=== PATIENT | female | born 1985 | race Caucasian/White ===

== ENCOUNTER 2024-08-18 20:03 | Emergency (ER) | payer BC, SELFPAY ==
[2024-08-18 20:09] VITALS: BP 120/81; PULSE 78; RESP 16; TEMP 36.6; O2SAT 98
--- NOTE | 2024-08-18 20:59 | XRR_ITS ---
PROCEDURE INFORMATION: Exam: XR Left Hand Exam date and time: 08/18/2024 9:04 PM Age: 39 years old Clinical indication: Injury or trauma; Fall; Blunt trauma (contusions or hematomas); Hand; Left; Additional info: Pain to 3rd/5th digits after fall TECHNIQUE: Imaging protocol: Radiologic exam of the left hand. Views: 3 or more views. COMPARISON: No relevant prior studies available. FINDINGS: Bones/joints: Mildly displaced fracture at the base of the 5th metacarpal. No dislocation. Soft tissues: Mild soft tissue swelling along the medial aspect of the hand. XR/XR hand LT min 3V* [id number] IMPRESSION: Mildly displaced fracture at the base of the 5th metacarpal.
--- NOTE | 2024-08-18 20:59 | XRR_ITS ---
PROCEDURE INFORMATION: Exam: XR Left Wrist Exam date and time: 08/18/2024 9:06 PM Age: 39 years old Clinical indication: Injury or trauma; Fall; Blunt trauma (contusions or hematomas); Wrist; Left; Additional info: Pain/fall TECHNIQUE: Imaging protocol: Radiologic exam of the left wrist. Views: 3 or more views. COMPARISON: CR (UP EX, ) 08/18/2024 9:04 PM FINDINGS: Bones/joints: Redemonstrated mildly displaced fracture of the base of the 5th metacarpal. No dislocation. No acute fracture within the carpal bones or in the visualized portions of the radius and ulna. Soft tissues: Normal. XR/XR wrist LT min 3V* [id number] IMPRESSION: 1. No acute fractures in the wrist. 2. Fifth metacarpal fracture.
--- NOTE | 2024-08-18 21:08 | W.ED.EXTPRO ---
HPI - Extremity Problem General: Chief complaint: Extremity Injury, Upper Stated complaint: fall stairs left hand numb Time Seen by Provider: 08/18/24 20:20 Source: patient Mode of arrival: ambulatory Limitations: no limitations History of Present Illness: Patient is a 39-year-old female who presents to the emergency department after injuring left hand 3 hours prior to arrival. Patient reportedly was walking up a set of bleachers, holding 2 drinks in her hand when she tripped on a step and landed awkwardly on her left hand. She is noting pain specifically to the dorsum of the 3rd through 5th digits, noting that it is numb and difficult to make a fist. No previous fractures or surgical history. She took ibuprofen prior to coming in. No pain in her wrist, no pain in her elbow. No anatomical snuffbox tenderness. MD Complaint: extremity pain Onset (ago): hour(s) (3) Pain Consistency: constant Location: left and upper extremity (hand) Radiation: distal Exacerbating factors: range of motion and palpation Associated symptoms: Deny chest pain, fever(s) or rash Related Data Allergies Allergy/AdvReac Type Severity Reaction Status Date / Time No Known Allergies Allergy Verified 08/18/24 20:13 Review of Systems General: Reports: 10 or more systems reviewed and unremarkable except in HPI and below Const: Denies: fever(s) or chills Card: Denies: chest pain Resp: Denies: dyspnea or productive cough GI: Denies: abdominal pain, nausea, vomiting or diarrhea : Denies: flank pain Musc: Reports: extremity pain (Left hand) and limited range of motion; Denies: neck pain, back pain, extremity swelling, joint pain, joint swelling, joint redness, joint warmth or muscle weakness Skin/Breast: Denies: rash Neuro: Denies: headache(s), numbness in extremities or weakness in extremities Physical Exam Const: COMMON NORMALS: no acute distress, patient oriented x3, no limitations, healthy appearing, alert and well nourished HENMT: COMMON NORMALS: normocephalic and atraumatic HEAD & SCALP: normocephalic and atraumatic Neck/C-Spine: COMMON NORMALS: full ROM, supple and no meningeal signs Resp: COMMON NORMALS: normal respiratory effort, No use of accessory muscles and clear to auscultation bilaterally AUSCULTATION: clear to auscultation bilaterally Cardio: COMMON NORMALS: regular rate and regular rhythm RATE: regular rate RHYTHM: regular rhythm Extremity: COMMON NORMALS: capillary refill normal, no joint enlargement and no clubbing, cyanosis or edema NARRATIVE EXTREMITY EXAM: Reproducible tenderness to palpation of the dorsum of the ulnar aspect of the left hand. Limited active and passive range of motion secondary to pain of the 3rd through 5th digits. No tenderness to palpation of the DIP or PIP joints. No bruising or obvious swelling. 2 small superficial abrasions noted to the dorsum of the hand. No distal sensory deficit. Good radial pulse. No anatomical snuffbox tenderness. Neuro: COMMON NORMALS: patient oriented x3, moves all extremities, no focal motor deficits and no sensory deficits noted SENSORIUM/ORIENTATION: Yes alert MENINGEAL SIGNS: Yes no meningeal signs Course Vital Signs: Vital signs: Vital Signs Temperature 97.8 F 08/18/24 20:09 Pulse Rate 84 08/18/24 22:07 Respiratory Rate 14 08/18/24 22:07 Blood Pressure 122/77 08/18/24 22:07 Pulse Oximetry 98 08/18/24 22:07 MDM - Extremity (Nontraumatic) Medical Decision Making Patient fell few hours prior to arrival, there does appear to be an injury with left fifth metacarpal fracture. She will be placed in an ulnar splint, there is no concern for distal neurovascular issues on exam. Will have her follow-up with orthopedics and return with any new or worsening. Post splint neurovascular exam intact. Lab Data Radiology Impressions Hand X-Ray 08/18/24 20:59 IMPRESSION: Mildly displaced fracture at the base of the 5th metacarpal. Wrist X-Ray 08/18/24 20:59 IMPRESSION: 1. No acute fractures in the wrist. 2. Fifth metacarpal fracture. All radiology interpretation(s) finalized by discharge Discharge Plan Discharge Patient Disposition: Home Clinical Impression: Closed fracture of fifth metacarpal bone Qualifiers: Encounter type: initial encounter Metacarpal location: base Fracture alignment: nondisplaced Laterality: left Qualified Code(s): S62.347A - Nondisplaced fracture of base of fifth metacarpal bone, left hand, initial encounter for closed fracture Condition: Stable Discharge Orders: Discharge ED (Routine); Ordered 08/18/24 Ordered By: Jeet Saez Patient Instructions: Hand Fracture (ED), Boxer Fracture (ED) Activity Restrictions/Additional Instructions: Follow-up with orthopedics as discussed. Tylenol/ibuprofen for pain relief. Please monitor for any new or worsening symptoms, return to the emergency department if so. Coding Level of Care Code ED Entry Level Administrative Assistant for Ania Qiu
[2024-08-18] MEDS: acetaminophen 500 mg Tablet 1000 MG PO (22:00)
[2024-08-18 22:07] VITALS: BP 122/77; PULSE 84; RESP 14; O2SAT 98
--- NOTE | 2024-08-19 08:38 | DCPLANNER ---
Message sent to Ortho for follow up LT hand closed fx to fifth metacarpal bone
== END 2024-08-18 22:10 | disposition home or self-care (01) ==
PROVIDERS: Emergency Provider Physician Assistant
DX: S62.347A Nondisplaced fracture of base of fifth metacarpal bone, left hand, initial encounter for closed fracture (principal); W01.0XXA Fall on same level from slipping, tripping and stumbling without subsequent striking against object, initial encounter
CPT/HCPCS: 29125; 73110; 73130; 99283

== ENCOUNTER → 2024-08-20 09:08 | Outpatient (BNVA) | payer BC, SELFPAY | PROVIDERS: Visit Provider Specialist | DX: S62.317A Displaced fracture of base of fifth metacarpal bone, left hand, initial encounter for closed fracture; W10.8XXA Fall (on) (from) other stairs and steps, initial encounter | CPT/HCPCS: 73130 ==

== ENCOUNTER → 2024-09-08 09:37 | Outpatient (BNVA) | payer BC, SELFPAY | PROVIDERS: Visit Provider Specialist | DX: S62.317D Displaced fracture of base of fifth metacarpal bone, left hand, subsequent encounter for fracture with routine healing; X58.XXXD Exposure to other specified factors, subsequent encounter | CPT/HCPCS: 73130 ==

== ENCOUNTER → 2024-09-17 10:29 | Outpatient (BNVA) | payer BC, SELFPAY | PROVIDERS: Visit Provider Specialist | DX: S62.317D Displaced fracture of base of fifth metacarpal bone, left hand, subsequent encounter for fracture with routine healing (principal); X58.XXXD Exposure to other specified factors, subsequent encounter | CPT/HCPCS: 73130 ==